=== PATIENT | male | born 1990 | race Caucasian/White ===

== ENCOUNTER 2017-01-11 17:51 | Emergency (ER) | payer OTHER ==
[~2017-01-11] VITALS: Ht 177.8 cm; Wt 69.5 kg
[2017-01-11 17:59] VITALS: BP 118/71; PULSE 103; RESP 19; TEMP 98.6; O2SAT 96
--- NOTE | 2017-01-11 20:22 | PD ---
HPI Chief Complaint: Psychiatric Symptoms Time Seen by Provider: 19:35 Travel History International Travel<30 days: No Contact w/Intl Traveler<30days: No Traveled to known affect area: No History of Present Illness HPI 26-year-old male that presents to the ED for evaluation of psychiatric illness. Patient was EXPARTE by his family secondary to concern for substance abuse. Patient apparently has been abusing Xanax and alcohol. Per paperwork he's been using almost every day and his been gaining the present to the point where every day he tells his family that he wants to end it all. He denies any history of depression or anxiety. He is never being Figueroa acted before. He denies any psychiatric illness. No other medical issues. Takes no medications. No allergies to medication. Denies any pain at this time. Patient last used Xanax yesterday. He denies injectable. Symptoms appear to be worsening secondary to continuous use. This appears to be a ongoing issue for a couple years now worsening the last couple of months. [facility] Social History Alcohol Use: Yes Tobacco Use: No Substance Use: Yes Allergies-Medications (Allergen,Severity, Reaction): Coded Allergies: No Known Allergies (Unverified , 01/11/17) Reported Meds & Prescriptions Reported Meds & Active Scripts Active No Active Prescriptions or Reported Medications Review of Systems Except as stated in HPI: all other systems reviewed are Neg Physical Exam Narrative GENERAL: SKIN: Warm and dry. HEAD: Atraumatic. Normocephalic. EYES: Pupils equal and round. No scleral icterus. No injection or drainage. ENT: No nasal bleeding or discharge. Mucous membranes pink and moist. Tongue is midline. No uvula deviation. NECK: Trachea midline. No JVD. CARDIOVASCULAR: Regular rate and rhythm. No murmurs, S3, S4. RESPIRATORY: No accessory muscle use. Clear to auscultation. Breath sounds equal bilaterally. GASTROINTESTINAL: Abdomen soft, non-tender, nondistended. Hepatic and splenic margins not palpable. MUSCULOSKELETAL: Extremities without clubbing, cyanosis, or edema. No obvious deformities. Full range of motion of the upper and lower extremities bilaterally. 2+ pulses bilaterally. NEUROLOGICAL: Awake and alert. No obvious cranial nerve deficits. Motor grossly within normal limits. Five out of 5 muscle strength in the arms and legs. Normal speech. PSYCHIATRIC: Appropriate mood and affect; insight and judgment normal. Data Data Last Documented VS Vital Signs Date Time Temp Pulse Resp B/P (MAP) Pulse Ox O2 Delivery O2 Flow Rate FiO2 01/11/17 17:59 98.6 103 19 118/71 (87) 96 Orders Orders Complete Blood Count With Diff (01/11/17 19:26) Comprehensive Metabolic Panel (01/11/17 19:26) Psych Screen (01/11/17 19:26) Drug Screen, Random Urine (01/11/17 19:26) Alcohol (Ethanol) (01/11/17 19:26) Salicylates (Aspirin) (01/11/17 19:26) Tylenol (Acetaminophen) (01/11/17 19:26) Labs Laboratory Tests Test 01/11/17 20:01 [facility] Medical Decision Making Medical Screen Exam Complete: Yes Emergency Medical Condition: Yes Medical Record Reviewed: Yes Differential Diagnosis Depression versus suicidal ideation versus anxiety versus adjustment disorder versus mood disorder versus bipolar disorder versus schizophrenia versus paranoid disorder versus psychosis versus substance abuse versus alcohol abuse versus alcohol induced psychosis versus homicidality addition versus cutting versus personality disorder Narrative Course 26-year-old male to presents to the ED for evaluation of psych. Patient was properly examined and was found to have signs and symptoms consistent with appears to be psychiatric illness. No sign of acute medical distress. Labs were drawn. Patient will be medically clear. Okay to be seen by psych. Mental health screening was discussed with the patient. Diagnosis Primary Impression: Polysubstance abuse Additional Impression: Suicidal ideations Scripts No Active Prescriptions or Reported Meds Gurdeep Gaytan Jan 11, 2017 20:22
[2017-01-11 20:25] LABS: AUTOMATED NEUTROPHIL # 5.7 TH/MM3 (1.8-7.7); BASOPHIL # 0.1 TH/MM3 (0-0.2); BASOPHIL % 0.6 % (0.0-2.0); EOSINOPHIL # 0.9 TH/MM3 (0-0.4); HEMATOCRIT 44.9 % (39.0-51.0); HEMO FLAGS DIFF FINAL; LYMPHOCYTE # 2.1 TH/MM3 (1.0-4.8); MEAN CELL VOLUME 90.7 FL (80.0-100.0); MEAN CORPUSCULAR HEMOGLOBIN 30.7 PG (27.0-34.0); MEAN CORPUSCULAR HGB CONC 33.9 % (32.0-36.0); NEUT % 59.4 % (16.0-70.0); PLATELET COUNT 176 TH/MM3 (150-450); RED BLOOD COUNT 4.95 MIL/MM3 (4.50-5.90); RED CELL DISTRIBUTION WIDTH 12.6 % (11.6-17.2); WHITE BLOOD COUNT 9.5 TH/MM3 (4.0-11.0)
[2017-01-11 20:34] LABS: ANION GAP 8 MEQ/L (5-15); BICARBONATE 28.4 MEQ/L (21.0-32.0); BLOOD UREA NITROGEN 9 MG/DL (7-18); CHLORIDE 104 MEQ/L (98-107); GLOMERULAR FILTRATION RATE 78 ML/MIN (>89); POTASSIUM 3.9 MEQ/L (3.5-5.1); SODIUM (NA) 140 MEQ/L (136-145)
[2017-01-11 20:36] LABS: ALT (GPT) 29 U/L (12-78); AST (GOT) 37 U/L (15-37)
[2017-01-11 20:38] LABS: ALCOHOL LESS THAN 3 MG/DL (0-5); ALKALINE PHOSPHATASE 96 U/L (45-117); TOTAL BILIRUBIN ADULT 0.7 MG/DL (0.2-1.0)
[2017-01-11 20:44] LABS: ACETAMINOPHEN LESS THAN 2.0 MCG/ML (10.0-30.0)
[2017-01-12 06:07] VITALS: BP 120/67; PULSE 80; RESP 18; O2SAT 99
[2017-01-12 10:41] VITALS: BP 141/85; PULSE 59; RESP 16; O2SAT 99
--- NOTE | 2017-01-12 10:52 | PD ---
History of Present Illness Chief Complaint: Psychiatric Symptoms Time Seen by Provider: 10:25 Travel History International Travel<30 Days: No Contact w/Intl Traveler<30days: No Known affected area: No Legal Status Legal Status: [employer] Parte [employer] Act Comment: EXPARTE INITIATED BY HIS FATHER History of Present Illness: History of Present Illness HPI 26-year-old male with no previous psychiatric history and positive history of substance use disorder that presents to the ED for evaluation of psychiatric illness under EXPARTE by his family secondary to concern for substance abuse. The order alleges that he has been using substances and has problems with verbal and physical outbursts. The patient admits to use of marijuana, alcohol as well as Xanax however he denies that he uses these substances on a daily basis. On arrival his toxicology is positive for benzos, cocaine as well as cannabinoids. He was monitored in [facility] and presented no behavioral or suicidality. Patient is seen with nurse Oliver and charge nurse Luiza Freeman. he is alert, oriented, calm and cooperative. There is no psychosis, no marilin and no suicidal or homicidal ideation, intent or plan. Psychiatric History Psychiatric History Hx Psychiatric Treatment: Deneis any previous hx. On no psychiatric medications No hx of suicidal attempts. History of Inpatient Treatment: No Guns or firearms in home: No Social History Single male, lives on his father's property. works in odd jobs. has a 5 year old son. Deneis any legal issues, no DUI Hx Alcohol Use: Yes (OCCASIONAL) Hx Tobacco Use: No Hx Substance Use: Yes (XANAX) Substance Use Type: Alcohol, Marijuana, Cocaine Allergies-Medications (Allergen,Severity, Reaction): Coded Allergies: No Known Allergies (Unverified , 01/11/17) Reported Meds & Prescriptions Reported Meds & Active Scripts Active No Active Prescriptions or Reported Medications Review of Systems Except as stated in HPI: all other systems reviewed are Neg Mental Status Examination Appearance: Appropriate Consciousness: Alert Orientation: x4 Motor Activity: Normal gait Speech: Unremarkable Language: Adequate Fund of Knowledge: Adequate Attention and Concentration: Adequate Memory: Unremarkable Mood: Appropriate Affect: Appropriate Thought Process & Associations: Intact, Logical, Goal directed Thought Content: Appropriate Hallucination Type: None Delusion Type: None Suicidal Ideation: No Suicidal Plan: No Suicidal Intention: No Homicidal Ideation: No Homicidal Plan: No Homicidal Intention: No Insight: Fair Judgment: Adequate [facility] Medical Decision Making Medical Record Reviewed: Yes Assessment/Plan 26-year-old male with no previous psychiatric history and positive history of substance use disorder that presents to the ED for evaluation of psychiatric illness under EXPARTE by his family secondary to concern for substance abuse. The order alleges that he has been using substances and has problems with verbal and physical outbursts. The patient admits to use of marijuana, alcohol as well as Xanax however he denies that he uses these substances on a daily basis. On arrival his toxicology is positive for benzos, cocaine as well as cannabinoids. He was monitored in [facility] and presented no behavioral or suicidality. He acknowledges he has a problem with use of substances although he minimizes his use. He agrees to begin NA meetings at this time. he does not meet criteria for involuntary psychiatric holding as he does not present an unstable psychiatric illness as defined under current mental health statues.Eleuterio is clear psychiatrically for discharge. Psychoeducation provided. Orders Orders Complete Blood Count With Diff (01/11/17 19:26) Comprehensive Metabolic Panel (01/11/17 19:26) Psych Screen (01/11/17 19:26) Drug Screen, Random Urine (01/11/17 19:26) Alcohol (Ethanol) (01/11/17 19:26) Salicylates (Aspirin) (01/11/17 19:26) Tylenol (Acetaminophen) (01/11/17 19:26) Diet Regular Basic (01/12/17 Breakfast) Diet Regular Basic (01/12/17 Lunch) Results Vital Signs Date Time Temp Pulse Resp B/P (MAP) Pulse Ox O2 Delivery O2 Flow Rate FiO2 01/12/17 06:07 80 18 120/67 (84) 99 01/11/17 17:59 98.6 103 19 118/71 (87) 96 Laboratory Tests Test 01/11/17 20:01 White Blood Count 9.5 Red Blood Count 4.95 Hemoglobin 15.2 Hematocrit 44.9 Mean Corpuscular Volume 90.7 Mean Corpuscular Hemoglobin 30.7 Mean Corpuscular Hemoglobin Concent 33.9 Red Cell Distribution Width 12.6 Platelet Count 176 Mean Platelet Volume 9.4 Neutrophils (%) (Auto) 59.4 Lymphocytes (%) (Auto) 22.0 Monocytes (%) (Auto) 9.0 Eosinophils (%) (Auto) 9.0 Basophils (%) (Auto) 0.6 Neutrophils # (Auto) 5.7 Lymphocytes # (Auto) 2.1 Monocytes # (Auto) 0.9 Eosinophils # (Auto) 0.9 Basophils # (Auto) 0.1 CBC Comment DIFF FINAL Differential Comment Blood Urea Nitrogen 9 Creatinine 1.14 Random Glucose 165 Total Protein 7.3 Albumin 4.2 Calcium Level 9.2 Alkaline Phosphatase 96 Aspartate Amino Transf (AST/SGOT) 37 Alanine Aminotransferase (ALT/SGPT) 29 Total Bilirubin 0.7 Sodium Level 140 Potassium Level 3.9 Chloride Level 104 Carbon Dioxide Level 28.4 Anion Gap 8 Estimat Glomerular Filtration Rate 78 Salicylates Level 3.0 Urine Opiates Screen NEG Acetaminophen Level LESS THAN 2.0 Urine Barbiturates Screen NEG Urine Amphetamines Screen NEG Urine Benzodiazepines Screen POS Urine Cocaine Screen POS Urine Cannabinoids Screen POS Ethyl Alcohol Level LESS THAN 3 Diagnosis Primary Impression: Polysubstance abuse Psychiatrically Cleared: Yes Additional Instructions: NA meetings. Med/ Other Pt Specific Info: No Meds Exist/No RX given Prescriptions No Active Prescriptions or Reported Meds Disposition: 01 DISCHARGE HOME Condition: Stable BrownDorene [employer] Jan 12, 2017 10:52
[2017-01-12 11:20] VITALS: BP 141/85; PULSE 59; RESP 16; O2SAT 99
--- NOTE | 2017-01-12 11:32 | PD ---
Physical Exam Time Seen by Provider: 11:29 MALIK Ramírez, has evaluated the patient and cleared the patient for discharge. Data Data Last Documented VS Vital Signs Date Time Temp Pulse Resp B/P (MAP) Pulse Ox O2 Delivery O2 Flow Rate FiO2 01/12/17 11:22 01/12/17 11:20 59 16 99 Room Air 01/11/17 17:59 98.6 Orders Orders Complete Blood Count With Diff (01/11/17 19:26) Comprehensive Metabolic Panel (01/11/17 19:26) Psych Screen (01/11/17 19:26) Drug Screen, Random Urine (01/11/17 19:26) Alcohol (Ethanol) (01/11/17 19:26) Salicylates (Aspirin) (01/11/17 19:26) Tylenol (Acetaminophen) (01/11/17 19:26) Diet Regular Basic (01/12/17 Breakfast) Diet Regular Basic (01/12/17 Lunch) Labs Laboratory Tests Test 01/11/17 20:01 White Blood Count 9.5 TH/MM3 Red Blood Count 4.95 MIL/MM3 Hemoglobin 15.2 GM/DL Hematocrit 44.9 % Mean Corpuscular Volume 90.7 FL Mean Corpuscular Hemoglobin 30.7 PG Mean Corpuscular Hemoglobin Concent 33.9 % Red Cell Distribution Width 12.6 % Platelet Count 176 TH/MM3 Mean Platelet Volume 9.4 FL Neutrophils (%) (Auto) 59.4 % Lymphocytes (%) (Auto) 22.0 % Monocytes (%) (Auto) 9.0 % Eosinophils (%) (Auto) 9.0 % Basophils (%) (Auto) 0.6 % Neutrophils # (Auto) 5.7 TH/MM3 Lymphocytes # (Auto) 2.1 TH/MM3 Monocytes # (Auto) 0.9 TH/MM3 Eosinophils # (Auto) 0.9 TH/MM3 Basophils # (Auto) 0.1 TH/MM3 CBC Comment DIFF FINAL Differential Comment Blood Urea Nitrogen 9 MG/DL Creatinine 1.14 MG/DL Random Glucose 165 MG/DL Total Protein 7.3 GM/DL Albumin 4.2 GM/DL Calcium Level 9.2 MG/DL Alkaline Phosphatase 96 U/L Aspartate Amino Transf (AST/SGOT) 37 U/L Alanine Aminotransferase (ALT/SGPT) 29 U/L Total Bilirubin 0.7 MG/DL Sodium Level 140 MEQ/L Potassium Level 3.9 MEQ/L Chloride Level 104 MEQ/L Carbon Dioxide Level 28.4 MEQ/L Anion Gap 8 MEQ/L Estimat Glomerular Filtration Rate 78 ML/MIN Salicylates Level 3.0 MG/DL Urine Opiates Screen NEG Acetaminophen Level LESS THAN 2.0 MCG/ML Urine Barbiturates Screen NEG Urine Amphetamines Screen NEG Urine Benzodiazepines Screen POS Urine Cocaine Screen POS Urine Cannabinoids Screen POS Ethyl Alcohol Level LESS THAN 3 MG/DL MDM Supervised Visit with TENNILLE: No Narrative Course MALIK Catherine, has evaluated the patient and cleared the patient for discharge.. Patient contracts safety. Denies suicidal or homicidal ideations. Patient will be provided community resource packet to MATTHEW for follow-up. Patient reports interest in following up at [facility] and was provided information for the program. Has friends and family for support. Patient is medically cleared for discharge. Diagnosis Primary Impression: Polysubstance abuse Referrals: [facility] (Out patient) [facility] Primary Care Physician Psychiatrist Evelina PASCUAL [facility] Patient Instructions: General Instructions, Polysubstance Abuse (ED) Additional Instruction: Attend NA meetings Stop using drugs Contract safety to your self and others Follow-up with psychiatry Follow-up with primary care provider Follow-up with Bandar Jin Return to the emergency department immediately with worsening of symptoms Med/Other Pt SpecificInfo: No Meds Exist/No RX given Scripts No Active Prescriptions or Reported Meds Disposition: 01 DISCHARGE HOME Condition: Stable Merle Mcneal Jan 12, 2017 11:32
== END 2017-01-12 14:47 | disposition home or self-care (01) ==
LOC: NEDAMB 17:51 → NEPJ 01-12 14:47
DX: F19.10 Other psychoactive substance abuse, uncomplicated (principal)
CPT/HCPCS: 80053; 80307; 85025; 99284